=== PATIENT | female | born 1970 | race Caucasian/White ===

== ENCOUNTER 2016-05-29 13:54 | Emergency (ER) ==
[2016-05-29 14:12] VITALS: BP 127/79
[2016-05-29 14:34] LABS: URINE CULTURE NEEDED? NO; URINE MICRO REVIEW NEEDED? NO; URINE SOURCE CATH
[2016-05-29 14:40] LABS: BILIRUBIN URINE NEGATIVE (NEGATIVE); BLOOD URINE NEGATIVE (NEGATIVE); COLOR YELLOW; GLUCOSE URINE NEGATIVE (NEGATIVE); LEUKOCYTES URINE NEGATIVE (NEGATIVE); NITRITE URINE NEGATIVE (NEGATIVE); PH URINE 5.5; PROTEIN URINE NEGATIVE (NEGATIVE); SP GRAVITY URINE 1.001; TURBIDITY URINE CLEAR (CLEAR); UROBILINOGEN URINE NORMAL (NORMAL)
[2016-05-29 14:40] LABS: MANUAL DIFF NEEDED? NO
[2016-05-29 14:42] LABS: UR EPITHELIAL CELLS <10 /HPF (<10); URINE BACTERIA NEGATIVE /HPF; URINE RBC <10 /HPF (<10); URINE WBC <10 /HPF (<10)
[2016-05-29 14:45] LABS: BASO% 0.4 % (0.0-0.8); EOS# 0.09 X1000 (0.0-0.7); EOS% 1.2 % (0.0-10.0); HEMATOCRIT 37.9 % (37.0-47.0); HEMOGLOBIN 12.6 g/dL (12.0-16.0); LYMPH# 2.49 X1000 (1.2-3.4); LYMPH% 33.9 % (20.5-51.1); MCH 30.5 PG (27-31); MCHC 33.2 g/dL (33-37); MCV 91.8 FL (81-99); MONO# 0.74 X1000 (0.11-0.59); MONO% 10.1 % (1.7-9.3); MPV 11.3 FL (7.4-10.4); NEUT% 54.4 % (42.2-75.2); PLT 223 X1000 (130-400); RBC 4.13 XMIL (4.2-5.4)
[2016-05-29 14:47] LABS: UR AMPHETAMINES QUAL NONE DETECTED (NONE DETECT); UR BARBITUATES QUAL NONE DETECTED (NONE DETECT); UR BENZODIAZEPIN QUAL NONE DETECTED (NONE DETECT); UR CANNABINOIDS QUAL NONE DETECTED (NONE DETECT); UR COCAINE QUAL NONE DETECTED (NONE DETECT); UR METHADONE QUAL NONE DETECTED (NONE DETECT); UR OPIATES QUAL NONE DETECTED (NONE DETECT); UR OXYCODONE QUAL NONE DETECTED (NONE DETECT); UR PCP QUAL NONE DETECTED (NONE DETECT)
[2016-05-29 15:08] LABS: ACETAMINOPHEN < 1.2 ug/mL (10-30); AGAP 13; ALBUMIN 3.9 g/dL (3.5-5.0); ALKALINE PHOSPHATASE 84 U/L (32-104); BUN 4 mg/dL (8-22); CALCIUM 8.8 mg/dL (8.8-10.2); CHLORIDE 103 mmol/L (98-107); COSMO 277; GOT 15 U/L (10-30); GPT 24 U/L (10-36); POTASSIUM 3.6 mmol/L (3.5-5.1); SODIUM 141 mmol/L (136-145); TCO2 25 mmol/L (25-35); TOTAL PROTEIN 6.6 g/dL (6.3-8.3)
--- NOTE | 2016-05-29 15:08 | PROVIDER DOCUMENTATION ---
HPI-Psychological Disorder - General Chief Complaint: Psych Stated Complaint: SORE THROAT/HEARING VOICES Time Seen by Provider: 05/29/16 14:46 Source: patient Allergies/Adverse Reactions: Patient Allergies Allergy/AdvReac Type Severity Reaction Status Date / Time paroxetine HCl * [From Paxil] Allergy Mild SWELLING Verified 05/29/16 15:56 Home Medications: Home Medication List Medication Instructions Recorded Confirmed Last Taken Type No Home Medications 05/29/16 05/29/16 Unknown History - History of Present Illness-Psych Nature of Presenting Problem: patient is a 46 y/o F that presents with hearing voices for years. Recently they got worse due to losing her insurance and the ability to see a physician. She was on Klonopin TID which help keep the voices at bay. She has been out for months. Her voices are peaceful, they don't tell her to harm herself or others. She has had insomnia. Patient wants something to keep the voices at bay. She reports drinking some over the past months to help sleep and keep voices. She also reports muscle cramps all over. Onset/Duration: reports: unsure Timing: reports: still present Severity: reports: mild, moderate Situational problems related to:: reports: N/A Psychiatric Complaints: reports: hallucinating, insomnia. denies: altered mental status, anxiety, depressed, restlessness, suicidal ideation Substance Use: reports: alcohol Previous psych related hospitalizations?: Yes Patient arrived by:: private car Similar Symptoms Previously?: Yes Recently seen or treated by another doctor?: No Review of Systems - Adult - REVIEW OF SYSTEMS - ADULT Constitutional: denies: chills, fever Eyes: reports: no symptoms reported Ears, Nose, Mouth & Throat: denies: ear pain, sinus problem, throat pain, throat swelling Cardiovascular: denies: chest pain, palpitations, syncope Respiratory: denies: cough, shortness of breath, wheezing Gastrointestinal: denies: abdominal pain, diarrhea, nausea, vomiting Genitourinary: reports: no symptoms reported Musculoskeletal: reports: no symptoms reported Integumentary: reports: no symptoms reported Neurological: denies: dizziness/vertigo, seizure, tremors Psychiatric: reports: emotional problems, insomnia. denies: anxiety, depression , suicidal thoughts Endocrine: reports: no symptoms reported Hematologic/Lymphatic: reports: no symptoms reported Allergic/Immunologic: reports: no symptoms reported All Other Systems: Reviewed and Negative Past History - Adult - PAST MEDICAL HISTORY-ADULT Review of Records: reports: Old Records Reviewed, Nursing Assessment Review, Medications Reviewed Psychiatric: reports: psychiatric problems - PRIOR SURGERIES/PROCEDURES Surgical/Procedure History: reports: hysterectomy, - IMMUNIZATION STATUS Childhood Immunizations: See Nurse Assessment Flu Vaccine: See Nurse Assessment - FAMILY HISTORY Family History: reviewed, not pertinent - SOCIAL HISTORY Smoking: cigarettes, less than 1 pack/day Alcohol Use Frequency: occasionally Living Situation: family Physical Exam-Psych Focus - Physical Exam-Psych Appearance: appropriate appearance, appropriate insight, neat, no apparent distress, no memory impairment, alert Neurological: alert, calm, oriented x 3 Behavior/Eye Contact/Speech: cooperative, good eye contact, normal speech Thoughts/Hallucinations: normal thought pattern, no apparent hallucination HENMT: normocephalic/atraumatic, moist mucous membranes, normal ENT inspection Neck: full range of motion, normal inspection Respiratory: lungs clear, normal breath sounds, no respiratory distress, no accessory muscle use Cardiovascular: regular rate, rhythm, no edema, no murmur Abdominal Exam: normal bowel sounds, non tender, soft Back Exam: normal inspection, no vertebral tenderness Extremity: normal range of motion, no pedal edema Integumentary: normal color, warm/dry Progress - PLAN OF CARE/RESULTS Progress/Plan/Lab Results: plan of care-psych work up Vital Signs Temp Pulse Resp BP Pulse Ox 05/29/16 14:06 98.2 F 93 H 18 127/79 100 paroxetine HCl * [From Paxil] Allergy (Mild, Verified 05/29/16 15:56) SWELLING No Home Medications 05/29/16 I&O 05/28/16 05/29/16 05/30/16 06:59 06:59 06:59 Output Total 80 Balance -80 Laboratory 05/29/16 05/29/16 05/29/16 14:20 14:20 14:16 WBC RBC Hgb Hct MCV MCH MCHC RDW Std Deviation Plt Count MPV Immature Gran % (Auto) Neut % (Auto) Lymph % (Auto) Tyler % (Auto) Eos % (Auto) Baso % (Auto) Immature Gran # (Auto) Neut # (Auto) Lymph # (Auto) Tyler # (Auto) Eos # (Auto) Baso # (Auto) Sodium Potassium Chloride Carbon Dioxide Anion Gap BUN Creatinine Estimated GFR/1.73 m2 BUN/Creatinine Ratio Glucose Calculated Osmolality Calcium Total Bilirubin AST ALT Alkaline Phosphatase Creatine Kinase 124 Total Protein Albumin Globulin Albumin/Globulin Ratio Vitamin B12 TSH Free T4 Serum , Qual Urine Source CATH Urine Color YELLOW Urine Turbidity CLEAR Urine pH 5.5 Ur Specific Apollo 1.001 Urine Protein NEGATIVE Ur Glucose (Stick) NEGATIVE Ur Ketones (Stick) NEGATIVE Urine Blood NEGATIVE Urine Nitrite NEGATIVE Urine Bilirubin NEGATIVE Urobilinogen Dipstick NORMAL Urine Leukocytes NEGATIVE Urine WBC (Auto) <10 Urine RBC (Auto) <10 U Epithel Cells (Auto) <10 Urine Bacteria (Auto) NEGATIVE Salicylates Urine Opiates Screen NONE DETECTED Ur Oxycodone Screen NONE DETECTED Ur Methadone, Qual NONE DETECTED Acetaminophen Ur Barbiturates Screen NONE DETECTED Ur Phencyclidine Scrn NONE DETECTED Ur Amphetamines Screen NONE DETECTED U Benzodiazepines Scrn NONE DETECTED Urine Cocaine Screen NONE DETECTED U Cannabinoids Screen NONE DETECTED Plasma/Serum Ethyl Alc 05/29/16 05/29/16 05/29/16 14:16 14:16 14:16 WBC RBC Hgb Hct MCV MCH MCHC RDW Std Deviation Plt Count MPV Immature Gran % (Auto) Neut % (Auto) Lymph % (Auto) Tyler % (Auto) Eos % (Auto) Baso % (Auto) Immature Gran # (Auto) Neut # (Auto) Lymph # (Auto) Tyler # (Auto) Eos # (Auto) Baso # (Auto) Sodium 141 Potassium 3.6 Chloride 103 Carbon Dioxide 25 Anion Gap 13 BUN 4 L Creatinine 0.6 Estimated GFR/1.73 m2 > 60 BUN/Creatinine Ratio 7 Glucose 75 Calculated Osmolality 277 Calcium 8.8 Total Bilirubin 0.20 AST 15 ALT 24 Alkaline Phosphatase 84 Creatine Kinase Total Protein 6.6 Albumin 3.9 Globulin 2.7 Albumin/Globulin Ratio 1.4 Vitamin B12 351 TSH 0.62 Free T4 0.96 Serum , Qual NEGATIVE Urine Source Urine Color Urine Turbidity Urine pH Ur Specific Apollo Urine Protein Ur Glucose (Stick) Ur Ketones (Stick) Urine Blood Urine Nitrite Urine Bilirubin Urobilinogen Dipstick Urine Leukocytes Urine WBC (Auto) Urine RBC (Auto) U Epithel Cells (Auto) Urine Bacteria (Auto) Salicylates < 3.00 L Urine Opiates Screen Ur Oxycodone Screen Ur Methadone, Qual Acetaminophen < 1.2 L Ur Barbiturates Screen Ur Phencyclidine Scrn Ur Amphetamines Screen U Benzodiazepines Scrn Urine Cocaine Screen U Cannabinoids Screen Plasma/Serum Ethyl Alc 05/29/16 05/29/16 14:16 14:16 WBC 7.34 RBC 4.13 L Hgb 12.6 Hct 37.9 MCV 91.8 MCH 30.5 MCHC 33.2 RDW Std Deviation 14.4 Plt Count 223 MPV 11.3 H Immature Gran % (Auto) 0.0 Neut % (Auto) 54.4 Lymph % (Auto) 33.9 Tyler % (Auto) 10.1 H Eos % (Auto) 1.2 Baso % (Auto) 0.4 Immature Gran # (Auto) 0.00 Neut # (Auto) 3.99 Lymph # (Auto) 2.49 Tyler # (Auto) 0.74 H Eos # (Auto) 0.09 Baso # (Auto) 0.03 Sodium Potassium Chloride Carbon Dioxide Anion Gap BUN Creatinine Estimated GFR/1.73 m2 BUN/Creatinine Ratio Glucose Calculated Osmolality Calcium Total Bilirubin AST ALT Alkaline Phosphatase Creatine Kinase Total Protein Albumin Globulin Albumin/Globulin Ratio Vitamin B12 TSH Free T4 Serum , Qual Urine Source Urine Color Urine Turbidity Urine pH Ur Specific Apollo Urine Protein Ur Glucose (Stick) Ur Ketones (Stick) Urine Blood Urine Nitrite Urine Bilirubin Urobilinogen Dipstick Urine Leukocytes Urine WBC (Auto) Urine RBC (Auto) U Epithel Cells (Auto) Urine Bacteria (Auto) Salicylates Urine Opiates Screen Ur Oxycodone Screen Ur Methadone, Qual Acetaminophen Ur Barbiturates Screen Ur Phencyclidine Scrn Ur Amphetamines Screen U Benzodiazepines Scrn Urine Cocaine Screen U Cannabinoids Screen Plasma/Serum Ethyl Alc Orders Category Date Time Status ACETAMINOPHEN [TDM] Stat Lab 05/29/16 14:16 Completed ALCOHOL BLOOD Stat Lab 05/29/16 14:16 Completed CBC WITH ELECTRONIC DIFF [HEME] Stat Lab 05/29/16 14:16 Completed CK PROFILE [SP CHEM] Stat Lab 05/29/16 14:16 Completed COMPREHENSIVE METABOLIC PANEL [CHEM] Stat Lab 05/29/16 14:16 Completed FREE T4 Stat Lab 05/29/16 14:16 Completed HCG [ TEST-SERUM] [PREG] Stat Lab 05/29/16 14:16 Completed SALICYLATES [TDM] Stat Lab 05/29/16 14:16 Completed TSH Stat Lab 05/29/16 14:16 Completed URINALYSIS W/POSS RFLX CULT [URINALYSIS] Stat Lab 05/29/16 14:20 Completed URINE DRUG SCREEN Stat Lab 05/29/16 14:20 Completed VITAMIN B12 Stat Lab 05/29/16 14:16 Completed pt is wanting to leave, pt is a/o x 3, she denies any HI or SI thoughts. Denies being a threat to anyone. Pt will sign out AMA , she understood the risks and rewards in staying and leaving. Departure - Departure Time of Disposition Order: 17:11 DIAGNOSIS: Hallucination, Auditory hallucinations, Myalgia Disposition: AGAINST MEDICAL ADVICE 07 Certified Medical Emergency: Emergent Condition: Stable Additional Instructions: ED Follow Up Instructions: You have been treated by a care provider in the Emergency Department. These instructions are being provided to you so you can have an understanding of how to care for yourself upon discharge. Upon discharge from the Emergency Department, you are responsible for making arrangements for follow-up care by a physician of your choice. Take all prescribed medications as directed. Return to the Emergency Department immediately for any new or worsening symptoms. You may call the Physician Referral phone number at [phone] to obtain a list of Physicians who are taking new patients. Attestation - Scribe Verification/Attestation Scribe:: Jackson Aguillon Acting as Scribe for:: Stanford Proctor Scribe documention review:: This chart was documented by a scribe and accurately reflects the service the provider performed and the decisions made by the provider. Physician Attestation - Physician Attestation I, the provider, attest to the following statement:: Stanford Proctor Physician documentation Attestation:: This documentation recorded by the scribe accurately reflects the service I personally performed and the decisions made by me.
[2016-05-29 15:26] LABS: FREE T4 0.96 ng/dL (0.93-1.70)
== END 2016-05-29 17:20 | disposition left against medical advice (07) ==
LOC: ED 13:54
DX: R44.0 Auditory hallucinations (principal); M79.1 Myalgia; F17.210 Nicotine dependence, cigarettes, uncomplicated
CPT/HCPCS: 80053; 81001; 82550; 82607; 84439; 84443; 84703; 85025; G0480; 80320; 80324; 80329; 80345; 80346; 80349; 80353; 80358; 80361; 80365; 83992